=== PATIENT | female | born 1995 | race Hispanic/Latino ===

== ENCOUNTER 2022-04-26 15:11 | Emergency (ER) | payer SELFPAY ==
[~2022-04-26] VITALS: Ht 167.6 cm; Wt 54.0 kg
[2022-04-26] MEDS ORDERED: KETOROLAC TROMETHAMINE 30 MG/ML VIAL IV STA (18:49)
[2022-04-26] MEDS ORDERED: SODIUM CHLORIDE 0.9% 1000ML 1,000 ML IV SCH (19:00)
[2022-04-26] MEDS ORDERED: ONDANSETRON HCL INJ 2MG/ML 2ML 2 MG/ML VIAL ONE (19:20)
[2022-04-26] MEDS ORDERED: KETOROLAC TROMETHAMINE 30 MG/ML VIAL ONE (19:20)
[2022-04-26] MEDS ORDERED: MAGNESIUM/ALUMINUM/SIMETHICONE 30 ML UDC ONE (19:42)
[2022-04-26] MEDS ORDERED: LIDOCAINE VISC 2% SOLN 15 ML UDC ONE (19:43)
[2022-04-26] MEDS ORDERED: LIDOCAINE VISC 2% SOLN 15 ML UDC PO ONE (19:45)
[2022-04-26] MEDS ORDERED: MAGNESIUM/ALUMINUM/SIMETHICONE 30 ML UDC PO ONE (19:45)
[2022-04-26] MEDS ORDERED: ACYCLOVIR400 MG PO (21:00)
== END 2022-04-26 21:36 | disposition home or self-care (01) ==
LOC: FSED 16:56
DX: R50.9 Fever, unspecified (principal); K12.1 Other forms of stomatitis; B34.9 Viral infection, unspecified; R11.2 Nausea with vomiting, unspecified; E86.0 Dehydration
CPT/HCPCS: 71046; 83518; 87400; 99284; J1885; J2405